=== PATIENT | female | born 1995 | race African-American/Black ===

== ENCOUNTER 2023-08-28 11:24 | Inpatient (IN) | payer BC, SELFPAY ==
[2023-08-28] VITALS (12 sets, daily range): BP systolic 118–136; BP diastolic 70–91; PULSE 11–100; RESP 16–20; TEMP 36.3–36.9; O2SAT 100; BMI 28.2
[2023-08-28 12:15] LABS: Basophils Percent Auto 0.4 % (0.2-1.2); Eosinophils Percent Auto 0.4 % (0-4.4); Hematocrit 40.8 % (37.0-47.0); Hemoglobin 13.5 g/dL (12.0-15.0); Immature Granulocyte Absolute 0.08 K/mm3 (0.00-0.031); Immature Granulocyte Percent A 1.2 % (0-0.5); Lymphocytes Absolute Auto 0.77 K/mm3 (0.9-3.2); Lymphocytes Percent Auto 11.4 % (18.3-44.2); Mean Corpuscular HGB Conc 33.1 g/dl (32-36); Mean Corpuscular Hemoglobin 29.5 pg (26-34); Mean Corpuscular Volume 89.3 fl (80-100); Mean Platelet Volume 10.6 fl (7.4-10.4); Monocytes Absolute Auto 0.6 K/mm3 (0.1-0.6); Monocytes Percent Auto 8.3 % (2.6-8.5); Neutrophils Absolute Auto 5.3 K/mm3 (1.3-6.7); Neutrophils Percent Auto 78.3 % (45.5-73.1); Platelet Count Result 196 k/mm3 (150-375); Red Blood Count 4.57 M/mm3 (4.2-5.4); Red Cell Distribution Width 13.3 % (11.5-14.5); White Blood Count 6.8 K/mm3 (4.5-10.0)
--- NOTE | 2023-08-28 12:20 | LDADM ---
This patient, Che Turner, was admitted to Labor/Delivery/Recovery 107 on 08/28/23 at 11:24. Plans for labor, pain management and were discussed with patient. Patient/family oriented to hospital policies and general routines including ID bracelet, bed and alarms, visiting hours, pain management, procedures, bathroom and other care routines, personal items, smoking policy, room service/diet and guest tray routines, infant security routines, and visiting hours. Patient/Family are encouraged to report perceived risks to care and to ask questions if they do not understand what they are told or what they should do. See [facility]BIX for further documentation.
[2023-08-28 13:10] LABS: HIV 1/2 Ab P24 Ag Result Negative (Negative)
[2023-08-28 13:40] LABS: Rapid Plasma Reagin Non-Reactive (NonReactive)
[2023-08-28] MEDS: OXYTOCIN 30 UNITS/NS 500 ML 30 UNITS/500 ML BAG 999 UNITS IV CONT (14:41)
[2023-08-28] MEDS: LIDOCAINE HCL 1% LOCAL INJ 20 ML VIAL (14:52)
[2023-08-28] MEDS: OXYTOCIN 30 UNITS/NS 500 ML 30 UNITS/500 ML BAG 125 UNITS IV CONT (15:11)
--- NOTE | 2023-08-28 15:53 | P.PCNOB_ITS ---
OB - Vaginal Delivery Note Procedure Delivery date: 08/28/23 Induction method: None Delivery monitor: External FHT and External Uterine Route of delivery: Episiotomy description: None Laceration Description: Perineal - 2nd Degree Delivery repair: vicryl Specimen: No Quantitative Blood Loss (ml): 100 Anesthesia type: Local Disposition: Floor Complications: No immediate complications Narrative: See H&P and notes for details on patient's admission and labor. She progressed to complete cervical dilation and at the appropriate time began pushing. With adequate expulsive efforts by the mother, the baby's head was delivered without difficulty. Nuchal cord was not present. The infant's nose and mouth were suctioned at the perineum. The baby's right shoulder was anterior and delivered under the pubic symphysis without difficulty. The posterior shoulder and the rest of the baby delivered without difficulty. The umbilical cord was doubly clamped and cut after 60 seconds of delayed cord clamping. Care of the infant wa s then assumed by the nursing staff. [place] Baby Date of : 08/28/23 Weeks of gestation at delivery: 39 Infant gender: Male presentation: vertex position: Left Occiput Anterior (with compound hand presentation) Placenta delivery description: Expressed Cord Vessel Description: 3 Vessels
--- NOTE | 2023-08-28 15:53 | WPDOBADMIT ---
Obstetrics - Admit Note Admission Note: record reviewed. No pertinent additions to the history and/or any subsequent changes in the physical findings that are not consistent with the expected course of the were found. uncomplicated, patient presents for contractions worsening at 0830 this morning. No leakage of fluid or vaginal bleeding. Additions to the history and/or subsequent changes in the physical findings follow. None.
[2023-08-28] MEDS: WITCH HAZEL 40 PADS 1 PAD TOPICAL (16:34)
[2023-08-28] MEDS: BENZOCAINE 20% AER SPR (*SP) 56 GM CAN 1 SPRAY TOPICAL (16:34)
[2023-08-28] MEDS: IBUPROFEN 600 MG TABLET PO (16:34)
[2023-08-28] MEDS: ACETAMINOPHEN 325 MG TABLET 650 MG PO (16:35)
--- NOTE | 2023-08-28 17:36 | OBPPTRN ---
Patient transferred to post room #286 via wheelchair. Support person present. Oriented to unit, room, information board, rooming in, admission packet and security measures. Patient verbalizes understanding.
[2023-08-29 05:37] LABS: Hematocrit 33.4 % (37.0-47.0); Hemoglobin 11.3 g/dL (12.0-15.0)
[2023-08-29 07:25] VITALS: BP 125/80; PULSE 103; RESP 16; TEMP 36.7; O2SAT 99
--- NOTE | 2023-08-29 08:12 | P.PNOB_ITS ---
OB - PN: Subj Subjective Date/time seen: 08/29/23 08:12 Interval history: pp day 1 doing well OB - PN: Obj Data Labs 08/29/23 04:11 Labs: Laboratory Results - last 24 hr 08/28/23 08/29/23 12:00 04:11 WBC 6.8 RBC 4.57 Hgb 13.5 11.3 L Hct 40.8 33.4 L MCV 89.3 MCH 29.5 MCHC 33.1 RDW 13.3 Plt Count 196 MPV 10.6 H Immature Gran % (Auto) 1.2 H Neut % (Auto) 78.3 H Lymph % (Auto) 11.4 L [place] % (Auto) 8.3 Eos % (Auto) 0.4 Baso % (Auto) 0.4 Lymph # (Auto) 0.77 L [place] # (Auto) 0.6 Eos # (Auto) 0.0 Baso # (Auto) 0.0 Abs Immat Gran (auto) 0.08 H Absolute Neuts (auto) 5.3 Absolute Nucleated RBC 0.000 Nucleated RBC % 0.0 RPR Non-reactive HIV 1&2 Ab/P24 Ag 4thGn Negative Blood Type O Positive Antibody Screen Negative OB - PN A/P Plan day: 1 Plan: routine care Time Spent With Patient Time: Total time spent is greater than 50% in coordination of care (as documented) at patient's floor/unit and/or counseling patient: Review of Systems Review of Systems: All systems reviewed & are unremarkable except as noted in HPI and below Exam Const: General: cooperative and healthy appearing Chest: Chest palpation & inspection: normal inspection of the chest Resp: Effort & Inspection: normal respiratory effort Cardio: Rate: regular rate Rhythm: regular rhythm GI: Other: soft : General: Yes bimanual renal exam normal bilaterally Skin: General skin exam: normal color Neuro: General: patient oriented x3 Extrem: General: normal to inspection
[2023-08-29] MEDS: MULTIVIT/MIN/PREN/FOL AC/IRON TABLET 1 TAB PO (08:16)
--- NOTE | 2023-08-29 08:33 | PC.NURSE ---
[id number]. Introductions made with patient. Consulted with patient to assess needs related to . Shanice described how her journey was going so far. Mom explained baby has a good strong latch. Mom wondered if she needed to stick to feeding baby on the 2-3 hr marcos. RN reviewd feeding cues and late hunger cues, and explained cluster feeding. RN explained to put baby to the breast when baby showed signs of hunger and that could be before 2 hrs. RN reviewed feeding on demand but not letting baby go longer than 3 hrs between feedings. Discussed with mother her successes, concerns and any questions she has. We reviewed working with the infant, supporting breast, protecting her nipples with an optimal deep latch, good positioning, and good hand washing. Encouraged understanding the benefits of skin to skin, responding to feeding cues, frequencies of feeding 8-12 times in 24 hours (approximately 2-3 hours), duration of feedings, milk production, intake/output feeding sheet and signs of adequate intake encouraging swallowing at the breast. Nipple care reviewed with optimal latch, good positioning and using clean hands when touching her breast. Resources used to facilitate learning were used from the visual handouts. Mother voiced understanding of the education shared, to call for assistance if the infant does not latch or if there is discomfort with . Reported to the Primary RN.
[2023-08-29 19:26] VITALS: BP 121/76; PULSE 90; RESP 20; TEMP 36.8; O2SAT 98
[2023-08-30] MEDS: MULTIVIT/MIN/PREN/FOL AC/IRON TABLET 1 TAB PO (07:17)
[2023-08-30] MEDS: DOCUSATE SODIUM 100 MG CAPSULE PO (07:22)
--- NOTE | 2023-08-30 07:45 | PM.OBPNVD ---
OB - PN: Subj Subjective Date/time seen: 08/30/23 07:45 Interval history: pp day 2 doing well OB - PN: Obj Data Labs 08/29/23 04:11 OB - PN A/P Plan day: 2 Plan: routine care and discharge home Time Spent With Patient Time: Total time spent is greater than 50% in coordination of care (as documented) at patient's floor/unit and/or counseling patient: Review of Systems Review of Systems: All systems reviewed & are unremarkable except as noted in HPI and below Exam Const: General: cooperative and healthy appearing Cardio: Rate: regular rate Rhythm: regular rhythm GI: Inspection: normal to inspection Skin: General skin exam: normal color Neuro: General: patient oriented x3 Extrem: Right lower extremity: normal to inspection Left lower extremity: normal to inspection Psych: Appearance: grossly normal
--- NOTE | 2023-08-30 07:49 | PM.OBDSVD ---
DS: Admitting Diagnosis Discharge Date 08/30/23 Admitting Diagnosis labor DS: Discharge Diagnosis Discharge Diagnosis (1) Vaginal delivery: Code(s): O80 - Encounter for full-term uncomplicated delivery Status: Acute OB - DS: Summary OB Procedures : None OB Procedures Intrapartum: Spontaneous Vag Delivery OB Procedures: : None Peripartum Data Laceration Description: Perineal - 2nd Degree Episiotomy description: None Time Spent with Patient Time attestation: Total time spent providing and/or coordinating discharge services: Discharge Plan Discharge Attending physician on discharge: Tremaine Anderson Discharging Clinician: Nhi Yepez Patient Disposition: Home, Self-Care Activity: pelvic rest Diet: regular Patient Instructions: Antibiotic Form Stand Alone Forms: General Discharge Information Follow-up/Referrals: Tremaine Anderson MD [Physician] - 4 Weeks Discharge Medications: New ibuprofen 600 mg Tablet 600 mg PO Q6H PRN (Reason: Cramping) Qty: 30 0RF Continued Classic 28 mg iron- 800 mcg Tablet 1 tablet PO DAILY Date of admission: 08/28/23 11:24 Primary Care Provider: UNKNOWN,DOCTOR Admitting Provider: Tremaine Anderson Attending physician on admission: Tremaine Anderson Condition: Stable
[2023-08-30 08:15] VITALS: BP 129/76; PULSE 104; RESP 16; TEMP 36.3; O2SAT 99
[2023-08-31 10:29] VITALS: BP 114/67; PULSE 102; RESP 18; TEMP 36.7; O2SAT 100
== END 2023-08-30 09:40 | disposition home or self-care (01) | DRG 807 ==
LOC: ANHLDR 11:43 → ANHOB2 17:59
PROVIDERS: Admitting Provider Obstetrics & Gynecology; Visit Provider Obstetrics & Gynecology
DX: O32.6XX0 Maternal care for compound presentation, not applicable or unspecified (principal); Z37.0 Single live birth; Z3A.39 39 weeks gestation of pregnancy; O70.1 Second degree perineal laceration during delivery
CPT/HCPCS: 36415; 85014; 85018; 85025; 86592; 86703; 86850; 86900; 86901; A9270; G0432; J2590